=== PATIENT | male | born 1970 | race Caucasian/White ===

== ENCOUNTER 2023-04-01 08:05 | Emergency (ER) | payer BC, SELFPAY ==
[2023-04-01 08:05] VITALS: BP 180/99; PULSE 84; RESP 22; TEMP 37.1; O2SAT 97
--- NOTE | 2023-04-01 08:14 | ED.EYEPROB ---
HPI - Eye Problem General Chief complaint: Eye Problems Stated complaint: eye injury Time Seen by Provider: 04/01/23 08:13 Source: patient Mode of arrival: ambulatory Limitations: no limitations History of Present Illness HPI Narrative: 52-year-old white male was weed eating yesterday felt something fly in his left eye did have any irritation yesterday he did rinse it out when he was in the shower later. Today it is watery and kept him up all night complains of discomfort in left eye feels some foreign body sensation when he looks up at the 12 o'clock position. His left eye is irritated red and uncomfortable. Denies any double blurry vision. Got a little blurred vision. Has a runny nose otherwise he is eating drinking stooling and voiding fine no cough fever sore throat shortness of breath. Denies any rash or itching dizziness or lightheadedness swelling lumps or bumps or any other complaints. Tetanus immunization in was given in the emergency department. With a Tdap. Review of Systems Review of Systems: All systems reviewed & are unremarkable except as noted in HPI and below PMFSH Family History Family History (Updated 10/12/17 @ 00:00 by CONVUSER A) Other Family history of lymphoma Comments Hypertension hyperlipidemia diabetes depression. Exam Const: General: healthy appearing Nutritional Appearance: well nourished Orientation/consciousness: patient oriented x3 Limitations: no limitations Other: Obese white male no apparent distress visual acuity left eye 20/50, right eye 20/25, both eyes 20/20. left eye is erythematous conjunctiva and injected very watery no discharge. Left eyelid everted there was no foreign body seen fluorescein exam was positive for fluorescein uptake the center of his vision 2 mm streak. Eye was irrigated with saline to rinse out floor seen. Funduscopic exam was benign. His right eye conjunctiva was a little bit injected no watery eyes otherwise look normal. Neurologic is ambulating fine moving all extremities speech is normal. Skin normal Course Vital Signs Vital signs: Vital Signs Temperature 37.1 C 04/01/23 08:05 Pulse Rate 84 04/01/23 08:05 Respiratory Rate 22 H 04/01/23 08:05 Blood Pressure 180/99 H 04/01/23 08:05 Pulse Oximetry 97 04/01/23 08:05 Oxygen Delivery Room Air 04/01/23 08:05 Temperature 37.1 C 04/01/23 08:05 Pulse Rate 84 04/01/23 08:05 Respiratory Rate 22 H 04/01/23 08:05 Blood Pressure 180/99 H 04/01/23 08:05 Pulse Oximetry 97 04/01/23 08:05 Oxygen Delivery Room Air 04/01/23 08:05 MDM - Eye Problem MDM Narrative Medical decision making narrative: Independent Historian: ? patient only Differential Dx includes but not limited to:? foreign body conjunctivitis uveitis Medications were Reviewed:? ?? medications reviewed with patient Independently Interpreted by me:? ?? External Source Review:? ? I&D of knee in 2015 notes reviewed Social Situation Impacting Patients Care:? ? Shared decision Making:?? evaluation was discussed all questions were asked and answered patient agreed with plan. Bleph 10 2 drops 4 times a day for 10 days to both eyes Tylenol with codeine 4 times a day p.r.n. ibuprofen. P.r.n. DISCHARGE DIAGNOSIS:? ? Left eye corneal abrasion DISPOSITION:? ? discharge home CONDITION AT DISCHARGE:? stable Discharge Plan Discharge Clinical Impression: Corneal abrasion Patient Disposition: Home, Self-Care Condition: Stable Instructions: Corneal Abrasion (ED) Additional Instructions: take sodium Sulamyd ophthalmic drops 2 drops both eyes 4 times a day for 10 days. Tylenol with codeine 1 tablet 4 times a day as needed for pain may also use ibuprofen 200 mg 3 tablets 3 times a day as needed for pain. Return if you get worse or develops any new symptoms. Follow up with the emergency department or your primary care doctor in 2 days if you are not better. Prescriptions: New sulfacetami
--- NOTE | 2023-04-01 08:25 | PC.NURSE ---
eye exam was given: both eyes (20/20), right eye (20/25), left eye (20/50) - injured eye
[2023-04-01] MEDS: TETRACAINE HCL 0.5% OPHTH SOLN 4 ML BTL 1 DROP EACH EYE (08:37)
[2023-04-01] MEDS: FLUORESCEIN SOD 1 MG/STRIP EACH EYE (08:37)
[2023-04-01] MEDS: FLUORESCEIN SOD 1 MG/STRIP (08:38)
[2023-04-01] MEDS: DACRIOSE EYE IRRIGATION 118 ML BOTTLE 50 ML LEFT EYE (08:38)
[2023-04-01] MEDS: ACETAMINOPHEN/CODEINE (*CRX) 300/30 MG TABLET 1 TAB PO (08:49)
[2023-04-01] MEDS: TETANUS,DIPHTHERIA,AC PERTUSSIS ADULT 0.5 ML (ADACEL) IM (08:50)
[2023-04-01 09:06] VITALS: BP 165/106; PULSE 80; RESP 20; TEMP 36.6; O2SAT 97
== END 2023-04-01 09:10 | disposition home or self-care (01) ==
LOC: CHSED 09:00
PROVIDERS: Emergency Provider Emergency Medicine
DX: S05.02XA Injury of conjunctiva and corneal abrasion without foreign body, left eye, initial encounter (principal); Z23 Encounter for immunization; X58.XXXA Exposure to other specified factors, initial encounter
CPT/HCPCS: 90471; 90715; 99283; A9270

== ENCOUNTER 2023-11-30 14:49 | Emergency (ER) | payer BC, SELFPAY ==
[2023-11-30 14:49] VITALS: BP 197/116; PULSE 94; RESP 20; TEMP 36.4; O2SAT 98
--- NOTE | 2023-11-30 15:15 | ED.DENTAL ---
HPI - Dental/Oral General Chief complaint: Dental/Oral Stated complaint: left lower molar pain Time Seen by Provider: 11/30/23 15:07 Source: patient Mode of arrival: ambulatory Limitations: no limitations History of Present Illness HPI Narrative: this is a 53-year-old male with history of hypertension presents with some tooth that appears to be cracked in the molar of his left lower gum area with surrounding gum inflammation a tooth was pulled but it looks like the tooth is coming through at this point. There is some submandibular gland inflammation and tenderness on the left side no fever chills no shortness of breath. MD Complaint: tooth pain Teeth map: 1. tooth and surrounding gum inflammation Onset (ago): day(s) Duration: constant Severity: severe Severity scale (1-10): 10 Relieving factors: nothing Exacerbating factors: chewing, cold, drinking fluids and swallowing Related Data Home Medications Medication Instructions Recorded Confirmed amlodipine 2.5 mg tablet 2.5 mg PO DAILY 11/30/23 11/30/23 lisinopril 20 mg tablet 20 mg PO DAILY 11/30/23 11/30/23 metformin 500 mg tablet,extended 500 mg PO BID 11/30/23 11/30/23 release 24 hr pravastatin 40 mg tablet 40 mg PO DAILY 11/30/23 11/30/23 sertraline 25 mg tablet 25 mg PO DAILY 11/30/23 11/30/23 Allergies Allergy/AdvReac Type Severity Reaction Status Date / Time No Known Allergies Allergy Verified 11/30/23 14:56 Review of Systems Review of Systems: All systems reviewed & are unremarkable except as noted in HPI and below PMFSH Past Medical History Medical History HTN (hypertension) Family History Family History Other Family history of lymphoma Hypertension Exam Const: General: healthy appearing and no acute distress Nutritional Appearance: well nourished Orientation/consciousness: patient oriented x3 HENMT: Other: left lower molar gum inflammation and tenderness with submandibular gland inflammation and tenderness Neck: Neck: lymphadenopathy Chest: Chest palpation & inspection: normal inspection of the chest Resp: Effort & Inspection: normal respiratory effort Auscultation: clear to auscultation bilaterally Skin: General skin exam: normal color Course Course Emergency Course: patient receive 60mg IM Toradol, blood pressure is elevated currently at 197/116 initially will repeat prior to discharge after receives pain medication, currently on amlodipine 2.5mg daily. Vital Signs Vital signs: Vital Signs Temperature 36.4 C L 11/30/23 14:49 Pulse Rate 94 11/30/23 14:49 Respiratory Rate 20 11/30/23 14:49 Blood Pressure 197/116 H 11/30/23 14:49 Pulse Oximetry 98 11/30/23 14:49 Oxygen Delivery Room Air 11/30/23 14:49 Temperature 36.4 C L 11/30/23 14:49 Pulse Rate 94 11/30/23 14:49 Respiratory Rate 20 11/30/23 14:49 Blood Pressure 197/116 H 11/30/23 14:49 Pulse Oximetry 98 11/30/23 14:49 Oxygen Delivery Room Air 11/30/23 14:49 Critical Care Time Critical Care Time Critical Care Time: No Discharge Plan Discharge Clinical Impression: Toothache, Gingivitis, Dental caries Patient Disposition: Home, Self-Care Condition: Stable Instructions: Antibiotic Form, Dental Abscess (ED), Toothache (ED) Additional Instructions: Advised take medicine as prescribed and follow-up with Primary/ dentist within 1 week for further evaluation and treatment. Prescriptions: New amoxicillin 500 mg tablet 500 mg PO TID Qty: 30 0RF tramadol 50 mg tablet 50 mg PO Q6H PRN (Reason: pain) Qty: 20 0RF No Action pravastatin 40 mg tablet 40 mg PO DAILY lisinopril 20 mg tablet 20 mg PO DAILY amlodipine 2.5 mg tablet 2.5 mg PO DAILY sertraline 25 mg tablet 25 mg PO DAILY metformin 500 mg tablet extended release 24 hr 500 mg PO BID
[2023-11-30] MEDS: KETOROLAC (*BKC) 60 MG/2 ML VIAL IM (15:16)
[2023-11-30 15:45] VITALS: BP 144/95
--- NOTE | 2023-11-30 15:45 | PC.NURSE ---
On 11/30/23, the student, Sandra Hwang, provided care and completed [facility] documentation on this patient. I have reviewed the student's documentation and agree with the findings.
[2023-11-30 15:53] VITALS: BP 144/95; PULSE 83; RESP 17; TEMP 36.4; O2SAT 98
== END 2023-11-30 15:53 | disposition home or self-care (01) ==
PROVIDERS: Emergency Provider Emergency Medicine; PCP Family Medicine
DX: K02.9 Dental caries, unspecified (principal); K05.10 Chronic gingivitis, plaque induced; I10 Essential (primary) hypertension; Z79.899 Other long term (current) drug therapy
CPT/HCPCS: 96372; 99283; J1885

== ENCOUNTER 2024-07-22 11:46 | Outpatient (CLI) | payer BC, SELFPAY ==
--- NOTE | ~2024-07-22 | XR_ITS ---
EXAMINATION: XR foot RT min 3V DATE: 07/22/2024 12:10 INDICATION: Right foot pain. TECHNIQUE: 4 views of right foot were obtained. COMPARISON: None. FINDINGS: There is mild hallux valgus. No fracture. There is mild osteoarthritis of first metatarsoph alangeal joint and some of the midfoot joints. There are enthesophytes at the posterior and plantar a spects of calcaneal tuberosity. IMPRESSION: 1. Mild polyarticular osteoarthritis. 2. Mild hallux valgus. Reviewed, dictated and finalized at location A.
--- NOTE | ~2024-07-22 | XR_ITS ---
EXAMINATION: XR ankle RT min 3V DATE: 07/22/2024 12:10 INDICATION: Right foot pain. TECHNIQUE: 4 views of right ankle were obtained. COMPARISON: None. FINDINGS: Bone alignment is normal. No fracture. There is mild ankle joint osteoarthritis. There is m ild midfoot osteoarthritis. There are enthesophytes at the posterior and plantar aspects of calcaneal tuberosity. There is an enthesophyte distal to medial malleolus. IMPRESSION: 1. Mild polyarticular osteoarthritis. Reviewed, dictated and finalized at location A.
== END 2024-07-22 11:47 | disposition home or self-care (01) ==
PROVIDERS: PCP Family Medicine; Visit Provider Family Medicine
DX: M79.671 Pain in right foot (principal); M19.071 Primary osteoarthritis, right ankle and foot; M20.11 Hallux valgus (acquired), right foot
CPT/HCPCS: 73610; 73630

== ENCOUNTER 2024-08-08 06:48 | Outpatient (CLI) | payer BC, SELFPAY ==
--- NOTE | ~2024-08-08 | MR_ITS ---
EXAMINATION: MR foot RT wo con DATE: 08/08/2024 07:44 INDICATION: Right foot pain TECHNIQUE: Magnetic resonance imaging (MRI) of the right ankle was performed without intravenous cont rast. Sequences included sagittal, coronal, and axial proton-density weighted fast spin echo without and with fat saturation. COMPARISON: None. FINDINGS: Medial ankle ligaments: There is heterotopic ossification along the deep deltoid ligament consistent with sequela of chronic sprain. The superficial deltoid ligament remains normal as does the spring ligament complex. Lateral ankle ligaments: The anterior and posterior inferior tibiofibular ligaments are normal. The anterior talofibular, calc aneofibular and posterior talofibular ligaments are normal. Tendons: Small enthesophyte at the calcaneal insertion of the otherwise normal Achilles tendon.. There is incr eased fluid extending along the peroneal tendon sheath consistent with mild tenosynovitis. The parana carlos longus and brevis tendons are normal. The tibialis anterior and extensor hallucis longus and exte nsor digitorum longus tendons are normal. The tibialis posterior, flexor digitorum longus and flexor hallucis longus tendons are normal. Plantar fascia: There is prominent thickening and increased signal of the proximal plantar aponeurosis most prominent at the central component. There is a V-shaped partial thickness tear involving the plantar half of t he tendon which extends proximally 1.5 cm medial to lateral with 4 mm separation of the tear margins. The configuration of the tear is best appreciated on the axial series 3 & 4, image 27 beginning at t he calcaneal origin medially and laterally with the central portion of the tear located 1.5 cm from t he footplate. There is mild edema in the surrounding soft tissues as well as increased marrow signal at the calcaneal origin where there is also a small plantar calcaneal spur consistent with acute on c hronic plantar fasciitis. Bones/other: Bone alignment is normal. Marrow signal is otherwise normal with no fracture or pathologic marrow rep lacing process. Joint spaces are normal. Fluid: Small joint effusion at the subtalar joint accumulating primarily in the anterior and posterior reces s of the joint space. IMPRESSION: 1. Acute on chronic plantar fasciitis with partial thickness tear involving the plantar half the cent ral component of the plantar aponeurosis. 2. Mild peroneal tenosynovitis with normal appearing peroneal tendons. 3. Heterotopic ossification at the deep deltoid ligament consistent with sequela of chronic sprain. 4. Small subtalar joint effusion. Reviewed, dictated and finalized at location A. IMPRESSION: 1. Acute on chronic plantar fasciitis with partial thickness tear involving the plantar half the central component of the plantar aponeurosis. 2. Mild peroneal tenosynovitis with normal appearing peroneal tendons. 3. Heterotopic ossification at the deep deltoid ligament consistent with sequel a of chronic sprain. 4. Small subtalar joint effusion.
[2024-08-08 07:05] LABS: Basophils Absolute Auto 0.02 K/mm3 (0.00-0.10); Basophils Percent Auto 0.2 % (0.0-1.0); Eosinophils Absolute Auto 0.24 K/mm3 (0.02-0.50); Eosinophils Percent Auto 2.8 % (1.0-6.0); Hematocrit 46.8 % (40.0-54.0); Hemoglobin 16.2 g/dL (14.0-18.0); Immature Granulocyte Absolute 0.06 K/mm3 (0.00-0.00); Immature Granulocyte Percent A 0.7 % (0.0-0.0); Lymphocytes Absolute Auto 2.27 K/mm3 (1.10-4.50); Lymphocytes Percent Auto 26.3 % (18.0-42.0); Mean Corpuscular HGB Conc 34.6 g/dL (32-36); Mean Corpuscular Hemoglobin 30.6 pg (27.0-31.0); Mean Corpuscular Volume 88.3 fL (78.0-102.0); Mean Platelet Volume 8.4 fl (8.7-11.0); Monocytes Percent Auto 8.1 % (2.0-11.0); Neutrophils Absolute Auto 5.34 K/mm3 (1.70-7.20); Neutrophils Percent Auto 61.9 % (50.0-70.0); Platelet Count Result 302 K/mm3 (150-420); Red Cell Distribution Width 12.8 % (11.6-14.4); White Blood Count 8.6 K/mm3 (4.8-10.8)
[2024-08-08 07:19] LABS: Hemoglobin A1C 6.9 % (<5.7)
[2024-08-08 08:01] LABS: Alanine Aminotransferase 50 U/L (16-63); Albumin Level 3.5 g/dL (3.4-5.0); Alkaline Phosphatase 63 U/L (46-116); Anion Gap 8 mmol/L (4-12); Aspartate Amino Transferase 17 U/L (15-37); Bilirubin,Total 0.5 mg/dL (0.00-1.00); Blood Urea Nitrogen 19 mg/dL (7-18); Calcium 8.9 mg/dL (8.5-10.1); Carbon Dioxide 29 mmol/L (21-32); Chloride 99 mmol/L (98-108); Estimated Glomerular Filt Rate > 60; Glucose 136 mg/dL (70-99); Osmolality Calculated 286 mOsm/kg (285-295); Potassium 4.3 mmol/L (3.5-5.1); Sodium 136 mmol/L (136-145); Thyroid Stimulating Hormone 1.75 uIU/mL (0.36-3.74); Total Protein 6.9 g/dL (6.4-8.2)
[2024-08-08 08:28] LABS: Add Urine Microscopic? NO; Appearance Urine Clear (Clear); Bilirubin Urine Negative (Negative); Blood Urine Negative (Negative); Color Urine Light Yellow (Yellow); Glucose Urine UA Negative (Negative); Ketones Urine Negative (Negative); Leukocyte Esterase Ur Negative (Negative); Nitrate Urine Negative (Negative); Protein Urine Negative (Negative); Specific Grav Ur 1.025 (1.010-1.020); Urobilinogen Urine 0.2 mg/dL (0.2-1.0); pH Urine 5.5 (5.0-8.0)
[2024-08-08 08:57] LABS: Creatinine Urine 140.41 mg/dL (40-278); MALB Creatinine Ratio 9.2 mg/g (0-30); Microalbumin Urine Random < 13.0 mg/L
== END 2024-08-08 06:49 | disposition home or self-care (01) ==
LOC: CHSIMG 06:50
PROVIDERS: PCP Family Medicine; Visit Provider Family Medicine
DX: E11.9 Type 2 diabetes mellitus without complications (principal); M72.2 Plantar fascial fibromatosis; M65.971 Unspecified synovitis and tenosynovitis, right ankle and foot; M25.474 Effusion, right foot
CPT/HCPCS: 36415; 73718; 80053; 81003; 82043; 83036; 84443; 85025

== ENCOUNTER 2025-06-02 12:57 | Emergency (ER) | payer BC, SELFPAY ==
[2025-06-02] VITALS (26 sets, daily range): BP systolic 141–196; BP diastolic 63–145; PULSE 69–84; RESP 14–20; TEMP 36.6–36.8; O2SAT 92–100
--- NOTE | ~2025-06-02 | CT_ITS ---
CTA brain carotid Ordering provider: Marybeth Barney MD History: . ACUTE CVA . Comparison: None. Reference is made to previous CT examination of the head performed approximately on e hour earlier Technique: CT angiogram head and neck was performed following timed intravenous injection of contrast . Thin slice axial images and reformatted coronal images were obtained. Three dimensional reformatted images of the brain were also obtained using a [employer] workstation. DLP: 3168 mGy-cm. The patient received 150 mL of contrast. FINDINGS: Examination is markedly limited by motion artifact. Examination was repeated secondary to the degree of motion artifact, resulting in increased venous op acification and limited arterial opacification, although less motion. The limited arterial opacification could be artifactual, secondary to a limited second bolus renderin g venous opacification stronger than arterial, or this could be actual Limited flow. All that is detected on the current examination (with certainty) is a greater than 95% stenosis withi n the left internal carotid artery at its origin with approximately 80% stenosis on the right interna l carotid artery, at its origin. Significant diffuse calcification is identified within the intracranial internal carotid artery, with in the carotid siphon rendering the outflow is somewhat limited. Within the posterior system, the left vertebral artery is dominant. No aneurysmal dilatation is appreciated on this limited examination. NONCONTRAST EXAMINATION OF THE BRAIN: Redemonstration of loss of arzate-white matter differentiation within the left temporo-occipital lobe w ithout significant change from previous examination performed approximately 1 hour earlier. The ventricles are normal in size, shape and position. There is no mass or midline shift. There is no large abnormal extra-axial fluid collection or significant intracranial hemorrhage. Mucoperiosteal thickening within the left frontoethmoidal recess and middle frontal sinus. Remaining paranasal sinuses are clear The mastoid air cells are well aerated. No acute displaced fractures within the overlying cranium. IMPRESSION: Limited examination of the brain secondary to significant motion artifact, necessitating a repeat exa mination with venous contamination. Greater than 90% stenosis within the left internal carotid artery at its origin. Approximately 70-80% stenosis within the right internal carotid artery at its origin. Reviewed, dictated and finalized at location A. IMPRESSION: Limited examination of the brain secondary to significant motion artifact, nece ssitating a repeat examination with venous contamination. Greater than 90% stenosis within the left internal carotid artery at its origin . Approximately 70-80% stenosis within the right internal carotid artery at its o rigin.
--- NOTE | ~2025-06-02 | CT_ITS ---
EXAMINATION: CT brain wo con DATE: 06/02/2025 13:51 INDICATION: Dizziness TECHNIQUE: Computed tomography (CT) of the head was performed without intravenous contrast. Sagittal and coronal reconstructions were performed. The mA was adjusted according to patient size. Iterative reconstruction technique was employed. The dose-length product was 681.00 mGy-cm. COMPARISON: None FINDINGS: There is a region of subtle decreased attenuation and pattern consistent with cytotoxic edema at the left occipital lobe and medial left temporal occipital region suspicious for acute infarct. No acute intracranial hemorrhage or abnormal extra axial fluid collection. Ventricles are normal and symmetric . No mass/mass effect. Mild mucosal thickening the bilateral ethmoid sinuses. Very small left mastoid effusion. The orbits and right mastoid air cells are normal. IMPRESSION: 1. Suggestion of subtle cytotoxic edema at the left occipital lobe and medial left temporal occipital region suspicious for acute infarct in the left posterior cerebral artery vascular distribution. Dr. Holland discussed these findings with Dr. Barney at 1:55 PM. Reviewed, dictated and finalized at location A. IMPRESSION: 1. Suggestion of subtle cytotoxic edema at the left occipital lobe and medial l eft temporal occipital region suspicious for acute infarct in the left posterio r cerebral artery vascular distribution. Dr. Holland discussed these findings with Dr. Barney at 1:55 PM.
--- NOTE | ~2025-06-02 | XR_ITS ---
EXAMINATION: XR chest 1V portable 06/02/2025 13:51 INDICATION: Dizziness PROCEDURE: AP portable chest COMPARISON: 11/20/2017 FINDINGS: The lungs are clear. The cardiomediastinal silhouette is within normal limits. There are no pleural effusions. There is no pneumothorax suspected. IMPRESSION: 1: NO ACUTE CARDIOPULMONARY DISEASE. Reviewed, dictated and finalized at location A.
--- OUTSIDE RECORDS SUMMARY | 2025-06-02 13:16 | XMS_ITS | Clinical Summary ---
Author Organization [facility] Address [address] [place] [address] Care Team Providers Care [employer] Head [employer] And Adjuster Name Role Phone Joselin Dinh MD Primary Care Provider Allergies No known active allergies Medications lisinopril (PRINIVIL,ZESTRI L) 20 mg tablet Take 1 tablet (20 mg total) by mouth daily. 30 tablet 09/15/2018 Active metFORMIN (GLUCOPHAGE) 500 mg tablet Take 1 tablet (500 mg total) by mouth 2 (two) times a day with meals. 60 tablet 09/15/2018 Active metoprolol (LOPRESSOR) 50 mg tablet Take 1 tablet (50 mg total) by mouth daily. 30 tablet 09/15/2018 Active pravastatin (PRAVACHOL) 20 mg tablet Take 1 tablet (20 mg total) by mouth daily. 30 tablet 09/15/2018 Active traMADol (ULTRAM) 50 mg tablet Take 1 tablet (50 mg total) by mouth 4 (four) times a day as needed for pain. 30 tablet 11/24/2018 Active Active Problems Problem Noted Date Diagnosed Date Mixed hyperlipidemia 11/21/2018 Assessment & Plan (11/21/2018 5:52 AM STROBOROMA OPERATOR): On statin Consider starting on aspirin 24 hr after the I and D Current smoker 11/21/2018 Assessment & Plan (11/21/2018 5:53 AM STROBOROMA OPERATOR): Start on Nicoderm patch Discussed and encouraged smoking cessation Hypertension 02/02/2018 Assessment & Plan (11/21/2018 5:52 AM STROBOROMA OPERATOR): Continue with lisinopril and metoprolol. Assessment & Plan (02/02/2018 3:05 AM CDT): Per patient usually well controlled will continue with home dose of lisinopril Trend kidney function with daily BMP Diabetes mellitus 02/02/2018 Overview (02/02/2018): borderline dm Assessment & Plan (11/21/2018 5:52 AM STROBOROMA OPERATOR): Hold oral hypoglycemics. Will start on 10 units of Lantus in a.m. And medium dose insulin sliding scale Assessment & Plan (02/02/2018 3:06 AM CDT): Well controlled with metformin 500 mg b.i.d. . Hold oral hypoglycemics. Will start on insulin sliding scale low corrective dose Abscess of left thigh 02/02/2018 Assessment & Plan (11/21/2018 5:51 AM STROBOROMA OPERATOR): Patient is status post I&D of the left thigh abscess packing in place. No sign of active bleeding. Continue IV antibiotics with clindamycin and ciprofloxacin Blood cultures and wound cultures are pending Monitor CBC and daily BMP Replete electrolytes as needed Assessment & Plan (02/02/2018 3:14 AM CDT): Abscess of inner thigh extending somewhat to her. Perineal area with severe tenderness Will get a CT of the thigh soft tissue with IV contrast to assess the extent of the induration and rule out deeper abscesses Will keep the patient NPO for planned surgical procedure in a.m. Continue with IV fluids Will continue with IV antibiotics with vanc and Zosyn pharmacy to dose Type and screen PT PTT INR in a.m. Trend CBC and BMP Class 3 severe obesity due t o excess calories with serious comorbidity and body mass index (BMI) of 40.0 to 44.9 in adult 02/02/2018 Assessment & Plan (11/21/2018 5:51 AM STROBOROMA OPERATOR): Weight loss encouraged Cellulitis and abscess of leg Surgical History Surgery Date Site/Laterality Comments ABDOMINAL SURGERY unsure I&D on abscess OTHER SURGICAL HISTORY I&D rt. inner thigh OTHER SURGICAL HISTORY 02/02/2018 Left I & D of left inner thigh abscess Medical History Medical History Date Comments Anxiety Hypertension High cholesterol Diabetes mellitus (HCC) borderli ne dm Family History Medical History Relation Name Comments Diabetes Father Hypertension Father Vision loss Father Diabetes Mother Cancer Paternal Grandfather Cancer Paternal Grandmother Relation Name Status Comments Father Alive Mother Alive Paternal Grandfather colon c a Paternal Grandmother stomach ca Social History Tobacco Use Types Packs/Day Years Used Date Smoking Tobacco: Every Day Cigarettes 1 32 Smokeless Tobacco: Current Tobacco Cessation:Ready to Q uit: No; Counseling Given: No Alcohol Use Standard Drinks/Week Comments No 0 (1 standard drink = 0.6 oz pur e alcohol) occasionally Sex and Gender Information Value Date Recorded Sex Assigned at Not on file Legal Sex Male 1:29 PM CDT Gender Identity Not on file Sexual Orientation Not on file Obstetrics History Last Filed Vital Signs Vital Sign Reading Time Taken Comments Blood Pressure 158/88 11/24/2018 8:23 AM STROBOROMA OPERATOR Pulse 69 11/24/2018 8:00 AM STROBOROMA OPERATOR Temperature 36.6 C (97.8 F) 11/24/2018 8:00 AM STROBOROMA OPERATOR Respiratory Rate 20 11/24/2018 8:00 AM STROBOROMA OPERATOR Oxygen Saturation 100% 11/24/2018 8:00 AM STROBOROMA OPERATOR Inhaled Oxygen Concentration - - Weight 145.2 kg (320 lb) 11/20/2018 8:03 PM STROBOROMA OPERATOR Height 185.4 cm (6' 1) 11/20/2018 8:03 PM STROBOROMA OPERATOR Body Mass Index 42.22 11/20/2018 8:03 PM STROBOROMA OPERATOR Plan of Treatment Not on file Insurance [facility] Advance Directives For more information, please contact: [phone] * Full Code (Latest Code Status on File) Date Activated Date Inactivated Comments 11/20/2018 10:00 PM 11/24/2018 2:42 PM * Full Code Date Activated Date Inactivated Comments 02/02/2018 2:05 AM 02/03/2018 12:45 PM * Full Code Date Activated Date Inactivated Comments 02/01/2018 5:14 PM 02/02/2018 2:05 AM Care Teams [employer] Inspector And Adjuster Relationship Specialty Start Date End Date Joselin Dinh MD [address] [place] [address] PCP - General 02/01/18
--- NOTE | 2025-06-02 13:19 | ECG_ITS ---
Test Date: 2025-06-02 13:37:13 Measurements Intervals [place] Rate: 67 P: 7 MO: 174 QRS: -2 QRSD: 89 T: 45 QT: 383 QTc: 407 Interpretive Statements SINUS RHYTHM WITH FREQUENT VENTRICULAR PREMATURE COMPLEXES CONSIDER INFERIOR INFARCT, AGE INDETERMINATE ANTERIOR INFARCT, AGE INDETERMINATE BASELINE ARTIFACT- III, V1-V2 ABNORMAL ECG No previous ECG available for comparison Electronically Signed On 06-02-2025 13:45:04 CDT by Justo Bueno D.O.
--- NOTE | 2025-06-02 13:19 | ED_ITS ---
HPI - General Adult General Chief complaint: Unspecified Stated complaint: dizzy Time Seen by Provider: 06/02/25 13:09 Source: patient Mode of arrival: ambulatory Limitations: no limitations History of Present Illness HPI narrative: 54 years old white male came to the ED with his from home by private car complaining of not feeling well, anxious, stressed, his dog 2 weeks ago has been stressed since, dizziness. Yesterday symptoms got worse with frontal headache, blurry vision at the right side of the right visual field, patient feels something wrong with him unable to pinpoint. History of hypertension hyperlipidemia diabetes And depression has been not taking his medications for the last few months without specific cause, patient smokes cigarette drink alcohol occasionally denies any drug use. Patient denies any fever, chills, nausea, vomiting, chest pain, shortness of breath or focal neuro deficit. Related Data Home Medications ?Medication ?Instructions ?Recorded ?Confirmed ?Last Taken ?Type amlodipine 2.5 mg tablet 2.5 mg PO DAILY 11/30/23 06/02/25 Unknown History lisinopril 20 mg tablet 20 mg PO DAILY 11/30/23 06/02/25 Unknown History metformin 500 mg tablet,extended 500 mg PO BID 11/30/23 06/02/25 Unknown History release 24 hr pravastatin 40 mg tablet 40 mg PO DAILY 11/30/23 06/02/25 Unknown History sertraline 25 mg tablet 25 mg PO DAILY 11/30/23 06/02/25 Unknown History Allergies Allergy/AdvReac Type Severity Reaction Status Date / Time No Known Allergies Allergy Verified 06/02/25 13:16 Review of Systems 2 Review of Systems: All systems reviewed & are unremarkable except as noted in HPI and below PMFSH Past Medical History Medical History Plantar fasciitis of right foot Tightness of right heel cord HTN (hypertension) Family History Family History Other Family history of lymphoma Hypertension Social History Social History Social History: caffeine use Smoking status: Current every day smoker Tobacco type: cigarettes Alcohol intake: current Drinks per week: 6 Occupation/Education: occupation Additional occupation/education comments: corrections office Gender identity (if verbalized by the patient): Male Exam 2 Narrative: General appearance: Well-developed, well-nourished, anxious, restless Skin: Normal color Head: Normocephalic, nontraumatic Eyes: Clear conjunctiva ENT: Oropharynx normal, ears normal, nose normal Neck: Supple, nontender Chest and respiratory: Airway patent, no respiratory distress, no accessory muscle use Heart: Regular rate/rhythm Abdomen: Soft, nontender, no organomegaly, quiet bowel sounds Vascular: Normal peripheral pulses, normal capillary refill. Musculoskeletal: Normal range of motion, nontender back Neurologic: Alert and oriented ?3, PATTERN DESIGNER is normal as tested, no gross motor deficit Course Consultations Consultation #1: DR. PENN, NEUROLOGIST ON-CALL AT [facility], ACCEPTED PATIENT TRANSFER Date: 06/02/25 Consultation #2: DR BROOKS , NEUROLOGIST AT [facility] WHO ACCEPTED PATIENT TRANSFER, NO BED AVAILABLE AT THIS TIME, WAITING LIST Date: 06/02/25 Vital Signs Vital signs: Vital Signs Temperature 36.8 C 06/02/25 12:57 Pulse Rate 84 06/02/25 12:57 Respiratory Rate 16 06/02/25 12:57 Blood Pressure 154/122 H 06/02/25 12:57 Pulse Oximetry 95 06/02/25 12:57 Oxygen Delivery Room Air 06/02/25 12:57 Temperature 36.8 C 06/02/25 12:57 Pulse Rate 76 06/02/25 20:17 Respiratory Rate 20 06/02/25 20:17 Blood Pressure 157/84 H 06/02/25 20:17 Pulse Oximetry 94 06/02/25 20:17 Oxygen Delivery Room Air 06/02/25 19:30 Medical Decision Making [facility] Narrative Medical decision making narrative: patient presents with not feeling well, patient not been taking his medication for diabetes, hypertension, hyperlipidemia and depression for the last few months. Vital signs on arrival showing blood pressure 154/122 otherwise within normal limit Physical examination showing very anxious patient, restless otherwise insignificant Differential diagnosis include noncompliance with medication, anxiety like symptoms, CVA,diabetic hyperglycemia, electrolyte imbalance, dehydration, urinary tract infection, Blood workup today includes CBC, CMP, troponin showed no significant abnormalities Urinalysis showed no significant abnormality Chest x-ray showed no acute abnormality CT head without contrast showed left occipital lobe acute infarct Aspirin 324 p.o. given, Differential Diagnosis Differential Diagnosis: as above Vital Signs Vital Signs: Vital Signs Temperature 36.8 C 06/02/25 12:57 Pulse Rate 84 06/02/25 12:57 Respiratory Rate 16 06/02/25 12:57 Blood Pressure 154/122 H 06/02/25 12:57 Pulse Oximetry 95 06/02/25 12:57 Oxygen Delivery Room Air 06/02/25 12:57 Temperature 36.8 C 06/02/25 12:57 Pulse Rate 76 06/02/25 20:17 Respiratory Rate 20 06/02/25 20:17 Blood Pressure 157/84 H 06/02/25 20:17 Pulse Oximetry 94 06/02/25 20:17 Oxygen Delivery Room Air 06/02/25 19:30 Lab Data 06/02/25 13:30 06/02/25 13:30 Labs: Lab Results 06/02/25 06/02/25 06/02/25 Range/Units 13:14 13:21 13:30 WBC 7.2 (4.8-10.8) K/mm3 RBC 5.47 (4.70-6.10) M/mm3 Hgb 16.7 (14.0-18.0) g/dL Hct 49.1 (40.0-54.0) % MCV 89.8 (78.0-102.0) fL MCH 30.5 (27.0-31.0) pg MCHC 34.0 (32-36) g/dL RDW 12.7 (11.6-14.4) % Plt Count 298 (150-420) K/mm3 MPV 8.6 L (8.7-11.0) fl Immature Gran % (Auto) 0.3 H (0.0-0.0) % Neut % (Auto) 56.0 (50.0-70.0) % Lymph % (Auto) 32.6 (18.0-42.0) % [place] % (Auto) 8.1 (2.0-11.0) % Eos % (Auto) 2.7 (1.0-6.0) % Baso % (Auto) 0.3 (0.0-1.0) % Lymph # (Auto) 2.33 (1.10-4.50) K/mm3 [place] # (Auto) 0.58 (0.10-0.90) K/mm3 Eos # (Auto) 0.19 (0.02-0.50) K/mm3 Baso # (Auto) 0.02 (0.00-0.10) K/mm3 Abs Immat Gran (auto) 0.02 H (0.00-0.00) K/mm3 Absolute Neuts (auto) 4.01 (1.70-7.20) K/mm3 Absolute Nucleated RBC 0.00 (0.00-0.00) K/mm3 Nucleated RBC % 0.0 (0-0.0) % PT 10.6 (9.50-12.1) Seconds INR 1.0 APTT 29.1 (23.9-30.70) Sec Sodium 138 (137-145) mmol/L Potassium 4.5 (3.4-5.0) mmol/L Chloride 108 H (98-107) mmol/L Carbon Dioxide 22 (22-30) mmol/L Anion Gap 8 (4-12) mmol/L BUN 16 (9-20) mg/dL Creatinine 0.99 (0.7-1.3) mg/dL Estim Creat Clear Calc 113 ml/min Estimated GFR > 60 (59 - ) Glucose 118 H (65-110) mg/dL POC Capillary Glucose 107 H (65-105) mg/dl Calculated Osmolality 288 (285-295) mOsm/kg Calcium 9.2 (8.4-10.2) mg/dL Total Bilirubin 0.5 (0.2-1.3) mg/dL AST 35 (17-59) U/L ALT 53 H (6-50) U/L Alkaline Phosphatase 59 (38-126) U/L Troponin I < 0.012 (0.000-0.034) ng/mL NT-Pro-B Natriuret Pep 46 (19.9-100) pg/mL Total Protein 7.6 (6.3-8.2) g/dL Albumin 4.6 (3.5-5.1) g/dL Urine Color (Yellow) Urine Appearance (Clear) Urine pH (5.0-8.0) Ur Specific [place] (1.010-1.020) Urine Protein (Negative) Urine Glucose (UA) (Negative) Urine Ketones (Negative) Ur Blood (Man) (Negative) Urine Nitrate (Negative) Urine Bilirubin (Negative) Urine Urobilinogen (0.2-1.0) mg/dL Leukocyte Esterase Rfl (Negative) GAGE/UL 06/02/25 Range/Units 14:00 WBC (4.8-10.8) K/mm3 RBC (4.70-6.10) M/mm3 Hgb (14.0-18.0) g/dL Hct (40.0-54.0) % MCV (78.0-102.0) fL MCH (27.0-31.0) pg MCHC (32-36) g/dL RDW (11.6-14.4) % Plt Count (150-420) K/mm3 MPV (8.7-11.0) fl Immature Gran % (Auto) (0.0-0.0) % Neut % (Auto) (50.0-70.0) % Lymph % (Auto) (18.0-42.0) % [place] % (Auto) (2.0-11.0) % Eos % (Auto) (1.0-6.0) % Baso % (Auto) (0.0-1.0) % Lymph # (Auto) (1.10-4.50) K/mm3 [place] # (Auto) (0.10-0.90) K/mm3 Eos # (Auto) (0.02-0.50) K/mm3 Baso # (Auto) (0.00-0.10) K/mm3 Abs Immat Gran (auto) (0.00-0.00) K/mm3 Absolute Neuts (auto) (1.70-7.20) K/mm3 Absolute Nucleated RBC (0.00-0.00) K/mm3 Nucleated RBC % (0-0.0) % PT (9.50-12.1) Seconds INR APTT (23.9-30.70) Sec Sodium (137-145) mmol/L Potassium (3.4-5.0) mmol/L Chloride (98-107) mmol/L Carbon Dioxide (22-30) mmol/L Anion Gap (4-12) mmol/L BUN (9-20) mg/dL Creatinine (0.7-1.3) mg/dL Estim Creat Clear Calc ml/min Estimated GFR (59 - ) Glucose (65-110) mg/dL POC Capillary Glucose (65-105) mg/dl Calculated Osmolality (285-295) mOsm/kg Calcium (8.4-10.2) mg/dL Total Bilirubin (0.2-1.3) mg/dL AST (17-59) U/L ALT (6-50) U/L Alkaline Phosphatase (38-126) U/L Troponin I (0.000-0.034) ng/mL NT-Pro-B Natriuret Pep (19.9-100) pg/mL Total Protein (6.3-8.2) g/dL Albumin (3.5-5.1) g/dL Urine Color Yellow (Yellow) Urine Appearance Clear (Clear) Urine pH 6.0 (5.0-8.0) Ur Specific [place] 1.025 H (1.010-1.020) Urine Protein Negative (Negative) Urine Glucose (UA) Trace H (Negative) Urine Ketones Trace H (Negative) Ur Blood (Man) Negative (Negative) Urine Nitrate Negative (Negative) Urine Bilirubin Negative (Negative) Urine Urobilinogen 0.2 (0.2-1.0) mg/dL Leukocyte Esterase Rfl Negative (Negative) GAGE/UL Imaging Data Radiologist's impression: Impressions Chest X-Ray 06/02/25 13:52 IMPRESSION: 1: NO ACUTE CARDIOPULMONARY DISEASE. Head CT 06/02/25 13:53 IMPRESSION: 1. Suggestion of subtle cytotoxic edema at the left occipital lobe and medial left temporal occipital region suspicious for acute infarct in the left posterior cerebral artery vascular distribution. Dr. Holland discussed these findings with Dr. Barney at 1:55 PM. ECG Data EKG #1: Attestation: I personally reviewed and interpreted this ECG as follows: ECG completion date: 06/02/25 Interpretation: normal sinus rhythm at 67 beats per minute, with frequent PVCs, anterior infarction, age indeterminate, consider inferior infarct, age indeterminate, abnormal EKG Critical Care Time Critical Care Time Critical Care Time: No Discharge Plan Discharge Clinical Impression: Acute cerebrovascular accident (CVA) Patient Disposition: Acute Care Hospital Condition: Stable Patient Language: Malaysian Prescriptions: No Action pravastatin 40 mg tablet 40 mg PO DAILY lisinopril 20 mg tablet 20 mg PO DAILY amlodipine 2.5 mg tablet 2.5 mg PO DAILY sertraline 25 mg tablet 25 mg PO DAILY metformin 500 mg tablet extended release 24 hr 500 mg PO BID amoxicillin 500 mg tablet 500 mg PO TID Qty: 30 0RF Follow-up/Referrals: Az Cuellar MD [Primary Care Provider] - Quality Stroke Scale Stroke Scale 1: Stroke scale date:: 06/02/25 Stroke scale time:: 14:21 1a Level of consciousness: alert-0 1b Level of consciousness questions: answers both correctly-0 1c Level of consciousness commands: obeys both correctly-0 2 Best gaze: normal-0 3 Visual: partial hemianopia-1 4 Facial palsy: normal-0 5a Motor: left arm: drift-1 5b Motor: right arm: no drift-0 6a Motor: left leg: no drift-0 6b Motor: right leg: no drift-0 7 Limb ataxia: absent-0 8 Sensory: normal-0 9 Best language: no aphasia-0 10 Dysarthria: normal-0 11 Extinction and inattention: no abnormality-0 Level:: 2
[2025-06-02 13:33] LABS: Hematocrit 49.1 % (40.0-54.0); Hemoglobin 16.7 g/dL (14.0-18.0); Immature Granulocyte Percent A 0.3 % (0.0-0.0); Lymphocytes Absolute Auto 2.33 K/mm3 (1.10-4.50); Mean Corpuscular HGB Conc 34.0 g/dL (32-36); Mean Corpuscular Hemoglobin 30.5 pg (27.0-31.0); Mean Corpuscular Volume 89.8 fL (78.0-102.0); Nucleated Red Blood Cells Absolute Auto 0.00 K/mm3 (0.00-0.00); Nucleated Red Blood Cells Perc 0.0 % (0-0.0); Platelet Count Result 298 K/mm3 (150-420); Red Blood Count 5.47 M/mm3 (4.70-6.10); White Blood Count 7.2 K/mm3 (4.8-10.8)
[2025-06-02] MEDS: LORazepam INJ (*CRX) 2 MG/ML VIAL 1 MG IV PUSH (13:37)
--- OUTSIDE RECORDS SUMMARY | 2025-06-02 13:45 | XMS_ITS | Clinical Summary ---
Author Organization [facility] Address [address] [place] [address] Care Team Providers Care Realtime Captioner Name Role Phone Joselin Dinh MD Primary Care Provider [phone] Allergies No known active allergies Medications lisinopril [...] 11/21/2018 Assessment & Plan (11/21/2018 5:52 AM DOOR TO DOOR SALES REPRESENTATIVE): On statin Consider starting on aspirin 24 hr after the I and D Current smoker 11/21/2018 Assessment & Plan (11/21/2018 5:53 AM DOOR TO DOOR SALES REPRESENTATIVE): Start on Nicoderm patch Discussed and encouraged smoking cessation Hypertension 02/02/2018 Assessment & Plan (11/21/2018 5:52 AM DOOR TO DOOR SALES REPRESENTATIVE): Continue with lisinopril and metoprolol. Assessment & Plan (02/02/2018 3:05 AM CDT): Per patient usually well controlled will continue with home dose of lisinopril Trend kidney function with daily BMP Diabetes mellitus 02/02/2018 Overview (02/02/2018): borderline dm Assessment & Plan (11/21/2018 5:52 AM DOOR TO DOOR SALES REPRESENTATIVE): Hold oral hypoglycemics. Will start on 10 units of Lantus in a.m. And medium dose insulin sliding scale Assessment & Plan (02/02/2018 3:06 AM CDT): Well controlled with metformin 500 mg b.i.d. . Hold oral hypoglycemics. Will start on insulin sliding scale low corrective dose Abscess of left thigh 02/02/2018 Assessment & Plan (11/21/2018 5:51 AM DOOR TO DOOR SALES REPRESENTATIVE): Patient is status post I&D of the [...] 02/02/2018 Assessment & Plan (11/21/2018 5:51 AM DOOR TO DOOR SALES REPRESENTATIVE): Weight loss encouraged Cellulitis and abscess of [...] Comments Blood Pressure 158/88 11/24/2018 8:23 AM DOOR TO DOOR SALES REPRESENTATIVE Pulse 69 11/24/2018 8:00 AM DOOR TO DOOR SALES REPRESENTATIVE Temperature 36.6 C (97.8 F) 11/24/2018 8:00 AM DOOR TO DOOR SALES REPRESENTATIVE Respiratory Rate 20 11/24/2018 8:00 AM DOOR TO DOOR SALES REPRESENTATIVE Oxygen Saturation 100% 11/24/2018 8:00 AM DOOR TO DOOR SALES REPRESENTATIVE Inhaled Oxygen Concentration - - Weight 145.2 kg (320 lb) 11/20/2018 8:03 PM DOOR TO DOOR SALES REPRESENTATIVE Height 185.4 cm (6' 1) 11/20/2018 8:03 PM DOOR TO DOOR SALES REPRESENTATIVE Body Mass Index 42.22 11/20/2018 8:03 PM DOOR TO DOOR SALES REPRESENTATIVE Plan of Treatment Not on file Insurance [facility] Advance Directives For more information, please contact: [phone] * Full Code (Latest Code Status on File) Date Activated Date Inactivated Comments 11/20/2018 10:00 PM 11/24/2018 2:42 PM * Full Code Date Activated Date Inactivated Comments 02/02/2018 2:05 AM 02/03/2018 12:45 PM * Full Code Date Activated Date Inactivated Comments 02/01/2018 5:14 PM 02/02/2018 2:05 AM Care Teams Realtime Captioner Relationship Specialty Start Date End Date Joselin Dinh MD [address] [place] [address] PCP - General 02/01/18
--- OUTSIDE RECORDS SUMMARY | 2025-06-02 13:45 | XMS_ITS | Clinical Summary ---
Author Organization [facility] Address [address] [place] [id number] Care Team Providers Care Consumer Insights Specialist Name Role Phone Juan Jose No MD Primary Care Provider [phone] Allergies No known active allergies Medications lisinopril 20 MG tablet 08/20/2021 Active cyclobenzaprine 10 MG tablet 09/29/2020 Active metFORMIN 500 MG tablet 08/20/2021 Active pravastatin 40 MG tablet 08/20/2021 Active sertraline 25 MG tablet 08/20/2021 Active temazepam 30 MG capsule 08/20/2021 Active meloxicam 15 MG tablet Take 1 tablet (15 mg total) by mouth daily. 60 tablet 5 08/27/2021 Active Active Problems No known active problems Social History Tobacco Use Types Packs/Day Years Used Date Smoking Tobacco: Every Day Smokeless Tobacco: Never Alcohol Use Standard Drinks/Week Comments Yes 0 (1 standard drink = 0.6 oz pur e alcohol) Sex and Gender Information Value Date Recorded Sex Assigned at Not on file Legal Sex Male 1:24 PM CDT Gender Identity Not on file Sexual Orientation Not on file Last Filed Vital Signs Vital Sign Reading Time Taken Comments Blood Pressure - - Pulse - - Temperature - - Respiratory Rate - - Oxygen Saturation - - Inhaled Oxygen Concentration - - Weight 136.1 kg (300 lb) 08/27/2021 9:27 AM CDT Height 185.4 cm (6' 1) 08/27/2021 9:27 AM CDT Body Mass Index 39.58 08/27/2021 9:27 AM CDT Plan of Treatment Health Maintenance Due Date Last Done Comments Colorectal Cancer Screening Colonoscopy (10 Years) 1972 Annual Physical 1975 Hepatitis C 1990 DTaP, Tdap and Td Vaccines ( 1 - Tdap) 1991 Hepatitis B Vaccines (1 of 3 - 19+ 3-dose series) 1991 Pneumococcal Vaccine: 50+ Ye ars (1 of 2 - PCV) 1991 Zoster Vaccines (1 of 2) 2022 COVID-19 Vaccine (2 - 2023-2 5 season) 2024 05/12/2021 Meningococcal B Vaccine Aged Out No l onger eligible based on patient's age to complete this topic Meningococcal Vaccine Aged Out No eliane antonella eligible based on patient's age to complete this topic RSV Immunizations Under 20 Months Aged Out No longer eligible based on patient's age to complete this topic Insurance [facility] Care Teams Consumer Insights Specialist Relationship Specialty Start Date End Date Juan Jose No MD PCP - General FAMILY PRACTICE 01/31/19
[2025-06-02 13:49] LABS: Alanine Aminotransferase 53 U/L (6-50); Albumin Level 4.6 g/dL (3.5-5.1); Alkaline Phosphatase 59 U/L (38-126); Anion Gap 8 mmol/L (4-12); Aspartate Amino Transferase 35 U/L (17-59); Bilirubin,Total 0.5 mg/dL (0.2-1.3); Blood Urea Nitrogen 16 mg/dL (9-20); Calcium 9.2 mg/dL (8.4-10.2); Carbon Dioxide 22 mmol/L (22-30); Chloride 108 mmol/L (98-107); Estimated CRCL calculation 113 ml/min; Estimated Glomerular Filt Rate > 60; Glucose 118 mg/dL (65-110); Osmolality Calculated 288 mOsm/kg (285-295); Potassium 4.5 mmol/L (3.4-5.0); Sodium 138 mmol/L (137-145); Total Protein 7.6 g/dL (6.3-8.2)
[2025-06-02 14:01] LABS: NT Pro B Type Natriuretic Pept 46 pg/mL (19.9-100); Troponin I < 0.012 ng/mL (0.000-0.034)
[2025-06-02 14:14] LABS: Add Urine Microscopic? NO; Appearance Urine Clear (Clear); Glucose Urine UA Trace (Negative); Leukocyte Esterase Ur Negative LEU/UL (Negative); Nitrate Urine Negative (Negative); Specific Grav Ur 1.025 (1.010-1.020)
[2025-06-02] MEDS: ASPIRIN 81 MG CHEWABLE TABLET 324 MG PO (14:35)
[2025-06-02 15:30] LABS: INR 1.0; Partial Thromboplastin Time 29.1 Sec (23.9-30.70); Prothrombin Time 10.6 Seconds (9.50-12.1)
--- NOTE | 2025-06-02 17:00 | PC.NURSE ---
Pt given update on transfer status. Pt yelling stating that he is frustrated. Pt removes all monitoring equipment. RN educates pt for need for monitoring equipment. Pt refuses to put equipment back on. MD Savita notified.
--- NOTE | 2025-06-02 19:15 | PC.NURSE ---
Handoff report given IDALIA Novak.
[2025-06-02] MEDS: LORazepam (*CRX) 1 MG TABLET PO (19:22)
[2025-06-02] MEDS: MORPHINE SULFATE (*CRX) 4 MG/ML INJ IV PUSH (19:22)
[2025-06-02] MEDS: ONDANSETRON INJ 4 MG/2 ML VIAL IV PUSH (19:22)
--- NOTE | 2025-06-02 19:28 | PC.NURSE ---
Pt resting and given sandwich to eat, at bedside. Pt continues to c/o severe H/A pain and asking for pain med. ERP informed and order obtained. Explained to pt about wiat time and no beds at [facility]. Pt is ok w/ trying other facilities for transfer.
--- NOTE | 2025-06-02 21:00 | PC.NURSE ---
Pt resting, continuing to monitor while awaiting transfer status at several hospitals. Pt updated on waitlist status at [facility] and [facility]. Will call other facilities for possible bed and transfer. Pt understands POC, no new c/o at this time.
--- NOTE | 2025-06-02 21:00 | PC.NURSE ---
Pt moved to more comfortable bed and moved to room 4, continuing to monitor, meds given as ordered. Pt resting comfortably, no new c/o at this time.
[2025-06-02] MEDS: CLOPIDOGREL BISULFATE 75 MG TABLET 300 MG PO (21:08)
[2025-06-02] MEDS: ATORVASTATIN 40 MG TABLET 80 MG PO (21:17)
--- NOTE | 2025-06-02 22:06 | PC.NURSE ---
Pt resting w/ eyes closed, continuing to monitor, VSS, call chapin at side. Awaiting call back from [facility] for transfer at this time.
--- NOTE | 2025-06-02 23:13 | PC.NURSE ---
Bed received at [facility], report called and given to IDALIA Adame. Call paged to [facility] for transfer. Pt and his updated.
== END 2025-06-02 23:27 | disposition short-term general hospital (02) ==
PROVIDERS: Emergency Provider Emergency Medicine; PCP Family Medicine
DX: I63.9 Cerebral infarction, unspecified (principal); I10 Essential (primary) hypertension; E78.5 Hyperlipidemia, unspecified; E11.9 Type 2 diabetes mellitus without complications; F17.210 Nicotine dependence, cigarettes, uncomplicated; Z79.899 Other long term (current) drug therapy; Z79.84 Long term (current) use of oral hypoglycemic drugs
CPT/HCPCS: 36415; 70450; 70496; 70498; 71045; 80053; 81003; 82948; 83880; 84484; 85025; 85610; 85730; 93005; 96374; 96375; 96376; 99285; A9270; J2060; J2270; J2405; Q9967